=== PATIENT | female | born 1970 | race Hispanic/Latino ===

== ENCOUNTER 2020-08-13 03:13 | Inpatient (IN) | payer SELFPAY ==
[2020-08-13 04:16] LABS: Absolute Lymphocytes (CBC) 2.2 K/uL (0.7-4.9); Basophils % 1.3 % (0-1.3); Hematocrit 32.3 % (36.0-45.0); Lymphocytes % 14.5 % (15.3-44.8); MPV 8.4 fL (7.6-11.3); RBC Red Blood Cell Count 3.74 M/uL (3.86-4.86)
[2020-08-13 04:19] LABS: Protime INR 1.01
[2020-08-13 04:41] LABS: ALT/SGPT 44 U/L (12-78); AST/SGOT 36 U/L (15-37); Albumin 2.3 g/dL (3.4-5.0); Alkaline Phosphatase 149 U/L (45-117); Amylase 30 U/L (25-115); BUN Blood Urea Nitrogen 14 mg/dL (7-18); Bicarbonate 29 mmol/L (21-32); Bilirubin Direct < 0.1 mg/dL (0-0.2); Bilirubin Total 0.3 mg/dL (0.2-1.0); CKMB Creatine Kinase MB < 1.0 ng/mL (0.3-3.6); Creatine Phosphokinase 238 U/L (26-192); Glucose Level 383 mg/dL (74-106); Lipase 82 U/L (73-393); NT PRO-BNP 1256 pg/mL (<125); Potassium 3.4 mmol/L (3.5-5.1); Protein, Total 6.8 g/dL (6.4-8.2); Sodium Level 135 mmol/L (136-145); Troponin (Emerg Dept Use Only) 0.08 ng/mL (0.0-0.045)
[2020-08-13 04:43] LABS: Magnesium 1.3 mg/dL (1.8-2.4)
[2020-08-13] MEDS ORDERED: NA CHLORIDE 0.9% 250 ML ONE (04:59)
[2020-08-13] MEDS ORDERED: NA CHLORIDE 0.9% 0 ML ONE ×2 (04:59→06:42)
[2020-08-13] MEDS ORDERED: CEFTRIAXONE/SWI 1gm 1 GM/10 ML SYR ONE (04:59)
[2020-08-13 05:18] LABS: Anisocytosis SLIGHT; Blood Morphology Comment NOTED (NOT SEEN); Platelet Estimate ADEQ; White Blood Cell Scan OK (OK)
[2020-08-13] MEDS ORDERED: Magnesium Sulfate 2gm IVPB 2 G/50 ML BAG IV ONE (05:32)
[2020-08-13] MEDS ORDERED: INSULIN -REGULAR HUMAN 50 UNIT/0.5 ML ML ONE ×3 (05:32→11:47)
[2020-08-13] MEDS ORDERED: FAMOTIDINE 20 MG/2 ML VIAL IV ONE ×3 (05:32→09:30)
[2020-08-13] MEDS ORDERED: AZITHROMYCIN 500 MG INJ IVPB ONE (05:59)
--- NOTE | 2020-08-13 06:10 | EDPHYS ---
Physician Documentation [facility] Name: Jennifer Medeiros Age: 49 yrs Sex: Female : 1970 Arrival Date: 08/13/2020 Time: 03:18 Bed 20 Private MD: ED Physician Ravinder Palmer HPI: 08/13 03:57 This 49 yrs old Female presents to ER via EMS with complaints of Breathing angela Difficulty. 03:57 The patient has shortness of breath at rest, with light activity. Onset: The angela symptoms/episode began/occurred this morning, today. Duration: The symptoms are continuous, but are steadily getting better. The patient's shortness of breath is aggravated by supine position, talking, walking, is alleviated by sitting up, application of supplemental oxygen. Associated signs and symptoms: The patient has no apparent associated signs or symptoms. Severity of symptoms: At their worst the symptoms were moderate in the emergency department the symptoms are unchanged. The patient has not experienced similar symptoms in the past. - Family history:: not pertinent. ROS: 03:57 Constitutional: Negative for fever, chills, and weight loss, Eyes: Negative for injury, angela pain, redness, and discharge, ENT: Negative for injury, pain, and discharge, Neck: Negative for injury, pain, and swelling, Cardiovascular: Negative for chest pain, palpitations, and edema, Abdomen/GI: Negative for abdominal pain, nausea, vomiting, diarrhea, and constipation, Back: Negative for injury and pain, : Negative for injury, bleeding, discharge, and swelling, MS/Extremity: Negative for injury and deformity, Skin: Negative for injury, rash, and discoloration, Neuro: Negative for headache, weakness, numbness, tingling, and seizure, Psych: Negative for depression, anxiety, suicide ideation, homicidal ideation, and hallucinations, Allergy/Immunology: Negative for hives, rash, and allergies, Endocrine: Negative for neck swelling, polydipsia, polyuria, polyphagia, and marked weight changes, Hematologic/Lymphatic: Negative for swollen nodes, abnormal bleeding, and unusual bruising. 03:57 Respiratory: Positive for cough, shortness of breath, on exertion. Exam: 03:57 Constitutional: This is a well developed, well nourished patient who is awake, alert, angela and in no acute distress. Head/Face: Normocephalic, atraumatic. Eyes: Pupils equal round and reactive to light, extra-ocular motions intact. Lids and lashes normal. Conjunctiva and sclera are non-icteric and not injected. Cornea within normal limits. Periorbital areas with no swelling, redness, or edema. ENT: Nares patent. No nasal discharge, no septal abnormalities noted. Tympanic membranes are normal and external auditory canals are clear. Oropharynx with no redness, swelling, or masses, exudates, or evidence of obstruction, uvula midline. Mucous membranes moist. Neck: Trachea midline, no thyromegaly or masses palpated, and no cervical lymphadenopathy. Supple, full range of motion without nuchal rigidity, or vertebral point tenderness. No Meningismus. Chest/axilla: Normal chest wall appearance and motion. Nontender with no deformity. No lesions are appreciated. Cardiovascular: Regular rate and rhythm with a normal S1 and S2. No gallops, murmurs, or rubs. Normal PMI, no JVD. No pulse deficits. Abdomen/GI: Soft, non-tender, with normal bowel sounds. No distension or tympany. No guarding or rebound. No evidence of tenderness throughout. Back: No spinal tenderness. No costovertebral tenderness. Full range of motion. Skin: Warm, dry with normal turgor. Normal color with no rashes, no lesions, and no evidence of cellulitis. MS/ Extremity: Pulses equal, no cyanosis. Neurovascular intact. Full, normal range of motion. Neuro: Awake and alert, GCS 15, oriented to person, place, time, and situation. Cranial nerves II-XII grossly intact. Motor strength 5/5 in all extremities. Sensory grossly intact. Cerebellar exam normal. Normal gait. Psych: Awake, alert, with orientation to person, place and time. Behavior, mood, and affect are within normal limits. 03:57 Respiratory: mild respiratory distress is noted, Respirations: labored breathing, that is mild, that is moderate, Breath sounds: are clear throughout, rales, that are moderate, decreased breath sounds, rhonchi, that are mild, are scattered. 04:16 ECG was reviewed by the Attending Physician. [facility] Vital Signs: 03:00 BP 158 / 68; Pulse 124; Resp 27; Temp 97.5; Pulse Ox 100% on Non-rebreather mask; Pain fu 0/10; 04:00 BP 115 / 67; Pulse 117; Resp 23; Pulse Ox 100% on 80% BiPAP; Weight 82.1 kg (R); Pain fu 0/10; 05:25 BP 160 / 94; Pulse 113; Resp 19; Pulse Ox 100% on 80% BiPAP; Pain 0/10; fu 06:04 BP 156 / 97; Pulse 111; Resp 16; Pulse Ox 100% on 60% BiPAP; Pain 0/10; fu MDM: 03:42 Patient medically screened. angela 04:00 Differential diagnosis: asthma, Bronchitis CHF exacerbation, Chronic Obstructive angela Pulmonary Disease pneumonia, Pneumothorax pulmonary edema, Pulmonary Embolism reactive airway disease, Unstable Angina. Antibiotic administration: Not indicated. The patient's Wells Deep Vein Thrombosis Score was calculated as follows: Heart Rate >100 BPM (1.5 Pts) Malignancy Total Score: 3-6 Pts - Mod Risk. The patient's pulmonary embolism risk score was calculated as follows: the patients heart rate is greater than 100 beats per minute (1.5 Pts) malignancy Total Score: 3-6 points. This patient was found to be at moderate risk for a pulmonary embolism by using the Well's assessment criteria. Immunization status: Influenza vaccine: Data reviewed: vital signs, nurses notes, EMS record, lab test result(s), EKG, radiologic studies, CT scan, plain films. Data interpreted: ekg monitor: rate is 124 beats/min, rhythm is regular, Pulse oximetry: on room air is 77 %. Test interpretation: by ED physician or midlevel provider: ECG, plain radiologic studies. Counseling: I had a detailed discussion with the patient and/or guardian regarding: the historical points, exam findings, and any diagnostic results supporting the discharge/admit diagnosis, lab results, radiology results, the need for further work-up and treatment in the hospital. 08/13 03:29 Order name: Amylase, Serum sg 08/13 03:29 Order name: Basic Metabolic Panel sg 08/13 03:29 Order name: Blood Culture Adult (2) sg 08/13 03:29 Order name: CBC with Diff; Complete Time: 05:23 sg 08/13 03:29 Order name: Ckmb; Complete Time: 04:51 sg 08/13 03:29 Order name: CPK; Complete Time: 04:51 sg 08/13 03:29 Order name: Lactate; Complete Time: 04:51 08/13 03:29 Order name: LFT's; Complete Time: 04:51 08/13 03:29 Order name: Lipase; Complete Time: 04:51 08/13 03:29 Order name: Procalcitonin; Complete Time: 06:01 08/13 03:29 Order name: Protime (+inr); Complete Time: 04:28 08/13 03:29 Order name: Ptt, Activated; Complete Time: 04:28 08/13 03:29 Order name: Troponin (emerg Dept Use Only); Complete Time: 04:51 08/13 03:29 Order name: Urine Microscopic Only 08/13 03:30 Order name: Amylase; Complete Time: 04:51 [facility] 08/13 03:30 Order name: Basic Metabolic Panel; Complete Time: 04:51 [facility] 08/13 04:04 Order name: NT PRO-BNP; Complete Time: 04:51 [facility] 08/13 04:04 Order name: Magnesium; Complete Time: 04:51 [facility] 08/13 04:20 Order name: CBC Smear Scan; Complete Time: 05:23 [facility] 08/13 04:59 Order name: Glucose, Ancillary Testing; Complete Time: 05:03 [facility] 08/13 05:50 Order name: Urine Dipstick--Ancillary (enter results) [facility] 08/13 06:04 Order name: SARS-COV-2 RT PCR [facility] 08/13 06:12 Order name: Urine Culture [facility] 08/13 07:51 Order name: Lactate Sepsis 2 HR Follow-up [facility] 08/13 08:07 Order name: Blood Culture [facility] 08/13 08:38 Order name: Glucose, Ancillary Testing [facility] 08/13 09:37 Order name: C-Reactive Protein [facility] 08/13 03:29 Order name: Chest Single View XRAY 08/13 03:29 Order name: Accucheck; Complete Time: 05:12 08/13 03:29 Order name: Cardiac monitoring; Complete Time: 04:39 08/13 03:29 Order name: EKG - Nurse/Tech; Complete Time: 04:39 08/13 03:29 Order name: IV Saline Lock - Large Bore; Complete Time: 04:39 08/13 03:29 Order name: Labs collected and sent; Complete Time: 04:40 08/13 03:29 Order name: O2 Per Protocol; Complete Time: 04:40 08/13 03:29 Order name: O2 Sat Monitoring; Complete Time: 04:40 08/13 03:29 Order name: Urine Dipstick-Ancillary (obtain specimen); Complete Time: 05:49 08/13 03:43 Order name: EKG; Complete Time: 03:43 [facility] 08/13 03:43 Order name: IV Saline Lock; Complete Time: 03:54 [facility] 08/13 04:02 Order name: CT Chest For PE Angio [facility] 08/13 04:14 Order name: BIPAP [facility] 08/13 09:37 Order name: Ferritin [facility] 08/13 09:52 Order name: Hemoglobin A1c [facility] 08/13 11:37 Order name: Glucose, Ancillary Testing [facility] 08/13 13:46 Order name: Creatine Phosphokinase [facility] 08/13 13:46 Order name: CKMB Creatine Kinase MB [facility] 08/13 13:47 Order name: Troponin I ED[facility] EC:16 Rate is 116 beats/min. Rhythm is regular. QRS Cashiers is Normal. SC interval is normal. [facility] QRS interval is prolonged at 142 msec. QT interval is normal. No Q waves. T waves are Normal. No ST changes noted. Clinical impression: NSR w/ Non-specific ST/T Changes and No evidence of ischemia. Interpreted by me. Reviewed by me. Administered Medications: 04:58 Drug: Zithromax 500 mg Route: IVPB; Infused Over: 1 hrs; Site: left wrist; fu 05:58 Follow up: Response: No adverse reaction fu 05:00 Drug: Rocephin 1 grams Route: IV; Rate: per protocol; Site: left wrist; fu 05:11 Drug: NS 0.9% (30 ml/kg) 30 ml/kg Route: IV; Rate: bolus; Site: left wrist; fu 06:34 Follow up: IV Intake: 1000ml fu 05:28 Drug: Pepcid 20 mg Route: IVP; Site: left wrist; fu 06:00 Follow up: Response: No adverse reaction fu 05:29 Drug: Magnesium Sulfate 2 grams Route: IVPB; Infused Over: 2 hrs; Site: left wrist; fu 05:31 Drug: Insulin Regular Human 8 units {Co-Signature: [email or web address] (Nathanael Newell RN).} Route: IVP; fu Site: left wrist; 06:05 Follow up: Response: No adverse reaction fu 06:20 Drug: Aspirin Chewable Tablet 162 mg Route: PO; fu 06:40 Follow up: Response: No adverse reaction fu 06:21 Drug: Lovenox 1 mg/kg Route: Sub-Q; Site: right lower abdomen; fu 06:40 Follow up: Response: No adverse reaction fu 06:23 Drug: SOLU-Medrol 125 mg Route: IVP; Site: left wrist; fu 06:40 Follow up: Response: No adverse reaction fu 06:35 Drug: Potassium Effervescent Tablet 50 mEq Route: PO; fu 06:40 Follow up: Response: No adverse reaction fu Disposition: 08/13/20 06:09 Hospitalization ordered by Jim Meng for Inpatient Admission. Preliminary diagnosis are Dyspnea, Hypoxemia, Cardiomegaly, Hypokalemia, Hypomagnesemia, SARS-associated coronavirus as the cause of diseases classified elsewhere - covid 19 positive, Anemia, unspecified. - Bed requested for Telemetry/MedSurg (Inpatient). - Status is Inpatient Admission. ss - Condition is Fair. - Problem is new. - Symptoms have improved. Signatures: Dispatcher [employer] EDMS [place] Sunshine Steven, RN Ravinder Wilson MD MD cha Smirch, Shelby, RN RN ss Lukas Ryan, FISCAL SERVICES DIRECTOR-C FISCAL SERVICES DIRECTOR-Cla1 Kevon Oconnell RN RN Yonatan Hutchison RN RN ja1 Nathanael Newell RN [email or web address] Corrections: (The following items were deleted from the chart) 04:04 03:43 MAGNESIUM+C.LAB.BRZ ordered. EDMS EDMS 04:04 03:43 PROBNP+C.LAB.BRZ ordered. EDMS EDMS 05:12 03:43 CORONAVIRUS+MR.LAB.BRZ ordered. EDMS EDMS 07:50 06:09 Hospitalization Ordered by Jim Meng DO for Inpatient Admission. Preliminary bd diagnosis is Dyspnea; Hypoxemia; Cardiomegaly; Hypokalemia; Hypomagnesemia; SARS-associated coronavirus as the cause of diseases classified elsewhere - covid 19 positive; Anemia, unspecified. Bed requested for Telemetry/MedSurg (Inpatient). Status is Inpatient Admission. Condition is Fair. Problem is new. Symptoms have improved. angela 15:46 07:50 08/13/2020 06:09 Hospitalization Ordered by Jim Meng DO for Inpatient ja1 Admission. Preliminary diagnosis is Dyspnea; Hypoxemia; Cardiomegaly; Hypokalemia; Hypomagnesemia; SARS-associated coronavirus as the cause of diseases classified elsewhere - covid 19 positive; Anemia, unspecified. Bed requested for [facility] ER HOLD. Status is Inpatient Admission. Condition is Fair. Problem is new. Symptoms have improved. bd 16:30 15:46 08/13/2020 06:09 Hospitalization Ordered by Jim Meng DO for Inpatient ss Admission. Preliminary diagnosis is Dyspnea; Hypoxemia; Cardiomegaly; Hypokalemia; Hypomagnesemia; SARS-associated coronavirus as the cause of diseases classified elsewhere - covid 19 positive; Anemia, unspecified. Bed requested for Telemetry/MedSurg (Inpatient). Status is Inpatient Admission. Condition is Fair. Problem is new. Symptoms have improved. ja1
--- NOTE | 2020-08-13 06:10 | ER ---
Nurse's Notes [facility] Name: Jennifer Medeiros Age: 49 yrs Sex: Female : 1970 Arrival Date: 08/13/2020 Time: 03:18 Bed 20 Private MD: Diagnosis: Dyspnea;Hypoxemia;Cardiomegaly;Hypokalemia;Hypomagnesemia;SARS-associated coronavirus as the cause of diseases classified elsewhere-covid 19 positive;Anemia, unspecified Presentation: 08/13 03:24 Chief complaint: EMS states: called for difficulty of breathing, diaphoretic, restless, fu tried CPAP but patient can not tolerate, O2 sat at 70's. Patient on chemotherapy at [facility] for right breast cancer, last chemo was Jul 15, 2020. Coronavirus screen: Client denies travel out of the [place] in the last 14 days. patient received first dose of COVID vaccine. Ebola Screen: No symptoms or risks identified at this time. Initial Sepsis Screen: Does the patient meet any 2 criteria? RR > 20 per min. Does the patient have a suspected source of infection? No. Patient's initial sepsis screen is negative. Risk Assessment: Do you want to hurt yourself or someone else? Patient reports no desire to harm self or others. Onset of symptoms was August 13, 2020 at 02:00. 03:24 Method Of Arrival: EMS: [facility] fu 03:24 Acuity: ALE 2 sg 03:30 Note EMS state pt room air saturation to be 77% upon arrival. sg - Family history:: not pertinent. Screenin:06 Abuse screen: Denies threats or abuse. Nutritional screening: No deficits noted. fu Tuberculosis screening: No symptoms or risk factors identified. Fall Risk None identified. Assessment: 03:20 General: Appears distressed, Behavior is cooperative, anxious. Pain: Denies pain. fu Neuro: Level of Consciousness is awake, alert, obeys commands, Oriented to person, place, time, situation, Hunter Guide are equal bilaterally Moves all extremities. Cardiovascular: Reports diaphoresis, palpitations, shortness of breath, Rhythm is sinus tachycardia. Respiratory: Respiratory effort is labored, using tripod position, Respiratory pattern is tachypnea Patient placed on BiPAP: Inspiratory Pressure: 14 Expiratory (EPAP) Pressure: 12 FiO2%: 80 Respiratory Rate: 12 GI: Patient currently denies abdominal pain, nausea, vomiting. : No signs and/or symptoms were reported regarding the genitourinary system. Derm: Denies pain. 04:00 Reassessment: Patient and/or family updated on plan of care and expected duration. Pain fu level reassessed. Patient denies pain at this time. Patient states feeling better. 05:59 Reassessment: Patient appears in no apparent distress at this time. Patient and/or fu family updated on plan of care and expected duration. Pain level reassessed. 05:59 Reassessment: No changes from previously documented assessment. fu 06:02 Reassessment: patient with port-a-cath on the right upper chest. fu Vital Signs: 03:00 BP 158 / 68; Pulse 124; Resp 27; Temp 97.5; Pulse Ox 100% on Non-rebreather mask; Pain fu 0/10; 04:00 BP 115 / 67; Pulse 117; Resp 23; Pulse Ox 100% on 80% BiPAP; Weight 82.1 kg (R); Pain fu 0/10; 05:25 BP 160 / 94; Pulse 113; Resp 19; Pulse Ox 100% on 80% BiPAP; Pain 0/10; fu 06:04 BP 156 / 97; Pulse 111; Resp 16; Pulse Ox 100% on 60% BiPAP; Pain 0/10; fu ED Course: 03:18 Patient arrived in ED. mw2 03:20 Maintain EMS IV. IV is patent, Flushed left forearm. fu 03:21 Kevon Oconnell, GAIL is Primary Nurse. fu 03:42 Ravinder Palmer MD is Attending Physician. angela 03:50 Chest Single View XRAY In Process Unspecified. EDMS 04:30 First set of blood cultures drawn. fu 04:40 Amylase, Serum Sent. fu 04:40 Basic Metabolic Panel Sent. fu 04:41 Notified ED physician of a critical lab result(s). Lac 2.7, Magnesium 1.3. sg 04:43 Triage completed. sg 05:00 COVID swab sent to lab. sg 05:00 Second set of blood cultures drawn by me. fu 05:06 No provider procedures requiring assistance completed. fu 05:09 pvc monitor on. Pulse ox on. NIBP on. fu 05:24 CT Chest For PE Angio In Process Unspecified. EDMS 05:49 Urine Microscopic Only Sent. fu 05:49 Blood Culture Adult (2) Sent. fu 06:06 Jim Meng DO is Hospitalizing Provider. angela 07:14 Primary Nurse role handed off by Kevon Oconnell, GAIL tw2 07:14 Eusebia Pederson, GAIL is Primary Nurse. tw2 16:30 Patient admitted, IV remains in place. tw2 Administered Medications: 04:58 Drug: Zithromax 500 mg Route: IVPB; Infused Over: 1 hrs; Site: left wrist; fu 05:58 Follow up: Response: No adverse reaction fu 05:00 Drug: Rocephin 1 grams Route: IV; Rate: per protocol; Site: left wrist; fu 05:11 Drug: NS 0.9% (30 ml/kg) 30 ml/kg Route: IV; Rate: bolus; Site: left wrist; fu 06:34 Follow up: IV Intake: 1000ml fu 05:28 Drug: Pepcid 20 mg Route: IVP; Site: left wrist; fu 06:00 Follow up: Response: No adverse reaction fu 05:29 Drug: Magnesium Sulfate 2 grams Route: IVPB; Infused Over: 2 hrs; Site: left wrist; fu 05:31 Drug: Insulin Regular Human 8 units {Co-Signature: [email or web address] (Nathanael Newell RN).} Route: IVP; fu Site: left wrist; 06:05 Follow up: Response: No adverse reaction fu 06:20 Drug: Aspirin Chewable Tablet 162 mg Route: PO; fu 06:40 Follow up: Response: No adverse reaction fu 06:21 Drug: Lovenox 1 mg/kg Route: Sub-Q; Site: right lower abdomen; fu 06:40 Follow up: Response: No adverse reaction fu 06:23 Drug: SOLU-Medrol 125 mg Route: IVP; Site: left wrist; fu 06:40 Follow up: Response: No adverse reaction fu 06:35 Drug: Potassium Effervescent Tablet 50 mEq Route: PO; fu 06:40 Follow up: Response: No adverse reaction fu Intake: 06:34 IV: 1000ml; Total: 1000ml. fu Outcome: 06:09 Decision to Hospitalize by Provider. angela 16:30 Patient left the ED. ss 16:30 Admitted to Med/surg tw2 16:30 Condition: stable 16:30 Instructed on the need for admit. Signatures: Dispatcher [employer] EDBasil Almaraz, RN Ravinder Wilson MD MD cha Smirch, Shelby, RN Eusebia Ware RN RN tw2 Kevon Oconnell RN GAIL Napoleon Burger [facility] Nathanael Newell RN [email or web address] Corrections: (The following items were deleted from the chart) 05:50 03:10 Maintain EMS IV. IV is patent, Flushed left forearm eduardo clrak
[2020-08-13 06:11] LABS: Urine Bacteria 20-50 /HPF (<20); Urine RBC <5 /HPF (NONE SEEN); Urine Urothelial Cells <5 /HPF (NONE SEEN)
[2020-08-13 06:11] LABS: Urine Blood TRACE (NEG); Urine Glucose 2+ (NEG); Urine Protein 3+ (NEG); Urine pH 6.5 (5.0-7.0)
[2020-08-13] MEDS ORDERED: POTASSIUM 25 MEQ EFFERV TAB ONE (06:26)
[2020-08-13] MEDS ORDERED: ASPIRIN 81 MG CHEWABLE TABLET ONE (06:26)
[2020-08-13] MEDS ORDERED: METHYLPREDNISOLONE 125 MG INJ ONE (06:26)
[2020-08-13] MEDS ORDERED: ENOXAPARIN 80 MG/0.8 ML SQ ONE (06:27)
[2020-08-13] MEDS ORDERED: NA CHLORIDE 0.9% 1,000 ML ONE (06:42)
[2020-08-13] MEDS ORDERED: ACETAMINOPHEN 500 MG TAB PO PRN (08:02)
[2020-08-13] MEDS ORDERED: GLUCAGON 1 MG/VIAL IM PRN (08:02)
[2020-08-13] MEDS ORDERED: ONDANSETRON 4 MG/2 ML VIAL IV PRN (08:02)
[2020-08-13] MEDS ORDERED: D50W 25 GM/50 ML SYRINGE IV PRN (08:02)
[2020-08-13] MEDS: METFORMIN ER 500 MG TAB PO SCH ×3 (08:02→17:00)
[2020-08-13] MEDS ORDERED: ASPIRIN EC 81 MG TAB PO ONE (08:51)
[2020-08-13] MEDS ORDERED: INSULIN GLARGINE 100 UNITS/ML SQ ONE (08:51)
[2020-08-13] MEDS ORDERED: METFORMIN HCL 500 MG TAB ONE (08:51)
[2020-08-13] MEDS ORDERED: VITAMIN D 1000 UNIT TAB ONE (08:51)
[2020-08-13] MEDS ORDERED: lisinopriL 20 MG TAB ONE (08:52)
[2020-08-13] MEDS ORDERED: ENOXAPARIN 40 MG/0.4 ML SQ ONE (08:52)
[2020-08-13] MEDS ORDERED: ZINC SULFATE 220 MG CAP ONE (08:52)
[2020-08-13] MEDS ORDERED: ASCORBIC ACID 500 MG TABLET ONE ×2 (08:52→15:13)
--- NOTE | 2020-08-13 08:57 | RAD REPORT ---
EXAM DESCRIPTION: RAD - Chest Single View - 08/13/2020 3:50 am CLINICAL HISTORY: COPD, shortness of breath COMPARISON: None TECHNIQUE: AP portable chest image was obtained 08/13/2020 3:50 am . FINDINGS: Lung volumes are low. Right-sided Port-A-Cath is in place. Costophrenic angle blunting is present. There is airspace opacification in both lower lung mendes. Heart and vasculature are normal. No pneumothorax. No acute bony abnormality seen. No acute aortic f indings suspected. IMPRESSION: Bilateral airspace opacification at each base with small pleural effusion. Findings are nonspecific. This could be cardiogenic or noncardiogenic pulmonary edema. Bilateral pneu monia is present more typical for viral in etiology. COVID-19 pneumonia cannot be excluded.
[2020-08-13] MEDS: lisinopriL 20 MG TAB PO SCH (09:00)
[2020-08-13] MEDS ORDERED: IVERMECTIN 3 MG TABLET PO SCH (09:00)
[2020-08-13] MEDS: ZINC SULFATE 220 MG CAP PO SCH (09:00)
[2020-08-13] MEDS: FAMOTIDINE 20 MG TAB PO SCH ×2 (09:00→21:05)
[2020-08-13] MEDS: ASCORBIC ACID 500 MG TABLET PO SCH ×4 (09:00→21:05)
[2020-08-13] MEDS: ASPIRIN EC 81 MG TAB PO SCH (09:00)
[2020-08-13] MEDS: VITAMIN D 1000 UNIT TAB PO SCH (09:00)
[2020-08-13] MEDS: THIAMINE HCL 100 MG TABLET PO SCH ×2 (09:00→21:05)
[2020-08-13] MEDS ORDERED: INSULIN GLARGINE 100 UNITS/ML SQ SCH (09:00)
[2020-08-13] MEDS: ENOXAPARIN 40 MG/0.4 ML SQ SCH (09:00)
[2020-08-13] MEDS: INSULIN -REGULAR HUMAN 50 UNIT/0.5 ML ML SQ SCH ×4 (09:04→21:06)
[2020-08-13] MEDS ORDERED: THIAMINE HCL 100 MG TABLET ONE (09:29)
[2020-08-13 09:37] LABS: C-Reactive Protein 16.1 mg/L (<3.00); Ferritin 68.6 ng/mL (8-388)
[2020-08-13] MEDS ORDERED: INFLUENZA VACCINE (for 3y+) 0.5 ML DOSE IMVAC ONE ×2 (10:00→12:10)
--- NOTE | 2020-08-13 13:32 | P.CNS ---
Date of Consult: 08/13/20 Reason for Consult: Respiratory failure Chief Complaint: Respiratory failure from hall virus History of Present Illness: Patient is 49 years of age admitted with respiratory failure from hall virus she has been sick for about a week came in with progressive shortness of breath currently doing well patient is on BiPAP Allergies No Known Allergies Allergy (Unverified 08/13/20 08:01) Home Medications: Furosemide [Lasix] 40 mg PO BID 08/13/20 Lisinopril/Hydrochlorothiazide [Lisinopril-Hctz 20-25 mg Tab] 20 mg PO DAILY 08/13/20 Metformin ER [Glucophage ER] 1,000 mg PO BID* 08/13/20 dexAMETHasone [Dexamethasone] 8 mg PO BID 08/13/20 glipiZIDE [Glipizide] 5 mg PO DAILY 08/13/20 lisinopriL [Lisinopril] 5 mg PO DAILY 08/13/20 - Past Medical/Surgical History -: DM -: HTN -: Breast cancer treated with chemotherapy at [facility] July 15 Review of Systems General: Weakness Respiratory: Shortness of Breath Physical Examination Temp Pulse Resp BP Pulse Ox 125 H 19 143/77 H 100 08/13/20 09:00 08/13/20 08:02 08/13/20 09:00 08/13/20 08:02 General: Alert, Oriented x3, Mild distress Respiratory: Clear to auscultation bilaterally, Diminished, Friction rub Cardiovascular: Normal S1 S2 Laboratory Data (last 24 hrs) 08/13/20 03:46: PT 11.9, INR 1.01, APTT 24.6 08/13/20 03:46: WBC 15.0 H, Hgb 9.9 L, Hct 32.3 L, Plt Count 439 H 08/13/20 03:46: Sodium 135 L, Potassium 3.4 L, BUN 14, Creatinine 0.87, Glucose 383 H, Magnesium 1.3 L*, Total Bilirubin 0.3, AST 36, ALT 44, Alkaline Phosphatase 149 H, Amylase 30, Lipase 82 08/13/20 03:43: Magnesium Cancelled - Problems (1) COVID-19 Current Visit: Yes Status: Acute Plan: Patient is 49 years of age admitted with pneumonia from hall virus patient's white count is elevated ferritin levels are normal agree with the hall virus protocol continue with ivermectin and steroids patient is on Decadron 5 mg p.o. b.i.d. increased to Solu-Medrol [address] scan reviewed no evidence of pulmonary embolism she has bilateral pulmonary infiltrates saturation satisfactory currently on 3 L of nasal cannula oxygen
[2020-08-13 13:46] LABS: CKMB Creatine Kinase MB 1.6 ng/mL (0.3-3.6); Troponin I 0.2 ng/mL (0.0-0.045)
--- NOTE | 2020-08-13 14:14 | ECHO ---
HEIGHT: 5 ft 5 in WEIGHT: 180 lb 15.992 oz DATE OF STUDY: 08/13/[address]: Jim Meng DO 2-DIMENSIONAL: YES M.MODE: YES DOPPLER: YES COLOR FLOW: YES TDS: NO PORTABLE: NO DEFINITY: NO BUBBLE STUDY: NO DIAGNOSIS: LEFT BUNDLE BRANCH BLOCK/ TOXICTY-MYOPATHY CARDIAC HISTORY: CATHERIZATION: SURGERY: PROSTHETIC VALVE: PACEMAKER: MEASUREMENTS (cm) DIASTOLIC (NORMALS) SYSTOLIC (NORMALS) IVSd 1.2 (0.6-1.2) LA Diam 4.2 (1.9-4.0) LVEF 32% LVIDd 4.3 (3.5-5.7) LVIDs 3.7 (2.0-3.5) %FS 15% LVPWd 1.2 (0.6-1.2) Ao Diam 2.4 (2.0-3.7) 2 DIMENSIONAL ASSESSMENT: RIGHT ATRIUM: NORMAL LEFT ATRIUM: ENLARGED RIGHT VENTRICLE: NROAML LEFT VENTRICLE: DEPRESSED FUNCTION TRICUSPID VALVE: NORMAL MITRAL VALVE: MILD TO MODERATE MITRAL REGURGITATION PULMONIC VALVE: NORMAL AORTIC VALVE: NORMAL PERICARDIAL EFFUSION: SMALL AORTIC ROOT: NORMAL LEFT VENTRICULAR WALL MOTION: MODERATELY SEVERE GLOBAL HYPOKINESIS. DOPPLER/COLOR FLOW: SEE BELOW. COMMENTS: MODERATELY DEPRESSED LEFT VENTRICULAR EJECTION FRACTION 30-35%. MODERATE GLOBAL HYPOKINESIS. MILD TO MODERATE MITRAL REGURGITATION. SMALL PERICARDIAL EFFUSION. TECHNOLOGIST: GRANT LIND
--- NOTE | 2020-08-13 15:55 | CON ---
Date of Consultation: 08/13/2020 Reason For Consultation: Heart failure. History Of Present Illness: This is a 49-year-old female with history of breast cancer, on chemother apy that was stopped due to a drop in ejection fraction, presented with shortness of breath and respi ratory failure due to COVID-19 infection. Was placed on high-flow oxygen in the emergency room. She has history of diabetes, hypertension, and nonischemic cardiomyopathy. Past Medical History: As outlined above in HPI. Medications: Refer to reconciliation sheet for detailed list. Allergies: NO KNOWN DRUG ALLERGIES. Family History: No premature coronary artery disease or cancer. Social History: She does not smoke or drink. Does not use any drugs. Review of Systems: All systems reviewed and they were negative except for what mentioned in the HPI. Physical Examination: Vital Signs: Temperature is 98.4, pulse is 101, breathing 19, blood pressure is 160/89, saturating 9 9% with oxygen supplements. General: This is a middle-aged female, in no distress. Head and Neck: Pupils are equal, reactive to light. Intact eye movements. No JVD. No cyanosis. Neck: Supple. Thyroid is not enlarged. Lungs: Rhonchi bilaterally. No accessory muscle use. Normal structure. Heart: Regular rate and rhythm. Tachycardic. Abdomen: Soft, nontender. Bowel sounds positive. No organomegaly. No masses or hernia. No rigidi ty or rebound. Extremities: 1+ pitting edema. No clubbing, cyanosis. Intact pulses. Skin: No rashes. Neurologic: Alert, awake, oriented x3. No acute focal deficits appreciated. Investigations: Troponin is 0.2. Magnesium is 1.3, potassium is 3.4, creatinine 0.87. On echo, she has an ejection fraction of 30% to 35% with small pericardial effusion. Assessment And Recommendations: 1.Acute on chronic systolic heart failure exacerbation respiratory infection due to COVID -19. Recommend gentle hydration initially as tolerated and monitor BUN and creatinine and electrolyt es carefully. 2.Due to a low ejection fraction, which could be chemotherapy-induced, the patient has a slight trop onin leak. Recommend a Lexiscan nuclear stress test to further evaluate the coronary arteries and fu rther plan accordingly. In the meanwhile, start on baby aspirin 81 mg. Thank you for the consult. SR/MODL Voice ID: [id number] Report ID: [id number]
--- NOTE | 2020-08-13 16:41 | P.HP ---
Certification for Inpatient Patient admitted to: Inpatient With expected LOS: >2 Midnights Patient will require the following post-hospital care: None Practitioner: I am a practitioner with admitting privileges, knowledge of patient current condition, hospital course, and medical plan of care. Services: Services provided to patient in accordance with Admission requirements found in Title 42 Section 412.3 of the Code of Federal Regulations Patient History Date of Service: 08/13/20 Primary Care Provider: none Reason for admission: Respiratory failure from hall virus History of Present Illness: 49-year-old female with history of breast cancer previously on chemotherapy, diabetes and hypertension. Patient reported increasing symptoms of shortness of breath last night. Symptoms worsen. She denied any chest pain, nausea vomiting. Patient reports that she had stopped chemotherapy about a week ago related to cardiac toxicity. She also reports having a recent transfusion due to anemia. Because of her symptoms she came to the ER for further evaluation. In the ER she was evaluated. Patient was tachypneic and slightly tachycardic. Patient was found to be positive for COVID. Patient required BiPAP in the emergency room. White count 15. Hemoglobin 9.9. Sodium 135, potassium 3.4. Being of 14, creatinine 0.8 with a GFR 69. Glucose 383. Alk-phos 149, CK 238. Troponin 0.08 with a BNP of 1256. Pro calcitonin negative. Magnesium 1.3. Chest x-ray shows evidence of viral pneumonia. Patient admitted for further evaluation. Allergies No Known Allergies Allergy (Unverified 08/13/20 08:01) Home medications list reviewed: Yes Home Medications: Furosemide [Lasix] 40 mg PO BID 08/13/20 Lisinopril/Hydrochlorothiazide [Lisinopril-Hctz 20-25 mg Tab] 20 mg PO DAILY 08/13/20 Metformin ER [Glucophage ER] 1,000 mg PO BID* 08/13/20 dexAMETHasone [Dexamethasone] 8 mg PO BID 08/13/20 glipiZIDE [Glipizide] 5 mg PO DAILY 08/13/20 lisinopriL [Lisinopril] 5 mg PO DAILY 08/13/20 - Past Medical/Surgical History Has patient received pneumonia vaccine in the past: No -: Diabetes mellitus type 2 -: HTN -: Breast cancer treated with chemotherapy at [facility] [place] July 15 -: Anemia of chronic disease -: Cardiac toxicity related to chemotherapy -: Former smoker -: Psychosocial/ Personal History: Patient is - Family History Family History: Reviewed- Non-Contributory - Social History Smoking Status: Former smoker Alcohol use: Yes CD- Drugs: No Caffeine use: Yes Place of Residence: Home Review of Systems General: Weakness, Malaise, As per HPI Eyes: Unremarkable ENT: Nose Congestion, As per HPI Respiratory: Cough, Shortness of Breath, SOB with Excertion, As per HPI Cardiovascular: Unremarkable Gastrointestinal: Unremarkable Genitourinary: Unremarkable Musculoskeletal: Unremarkable Integumentary: Unremarkable Neurological: Unremarkable Lymphatics: Unremarkable Physical Examination - Vital Signs Temperature: 97.2 F Blood Pressure: 161/69 Pulse: 100 Respirations: 18 Pulse Ox (%): 94 - Physical Exam General: Alert, Cooperative, Mild distress, Other (Patient currently on BiPAP) HEENT: Atraumatic Neck: Supple Respiratory: Other (Currently on BiPAP) Cardiovascular: Abnormal pulses (Sinus tachycardia) Gastrointestinal: Normal bowel sounds, Non-distended, No tenderness, No masses, No rebound, No guarding Integumentary: No tenderness/swelling, No erythema, No warmth, No cyanosis Neurological: Normal speech, Normal strength at 5/5 x4 extr, Normal tone, Normal affect - Studies Laboratory Data (last 24 hrs) 08/13/20 03:46: PT 11.9, INR 1.01, APTT 24.6 08/13/20 03:46: WBC 15.0 H, Hgb 9.9 L, Hct 32.3 L, Plt Count 439 H 08/13/20 03:46: Sodium 135 L, Potassium 3.4 L, BUN 14, Creatinine 0.87, Glucose 383 H, Magnesium 1.3 L*, Total Bilirubin 0.3, AST 36, ALT 44, Alkaline Phosphatase 149 H, Amylase 30, Lipase 82 08/13/20 03:43: Magnesium Cancelled Assessment and Plan - Plan Impression: Dyspnea secondary to acute respiratory failure related to bilateral COVID pneumonia Elevated troponin likely ischemic demand related to above Diabetes mellitus type 2 with hyperglycemia Hypertension Anemia of chronic disease Breast cancer with recent chemotherapy History of Cardiac Toxicity related to chemotherapy Plan: Patient will be admitted for further evaluation and treatment. Patient cur rently on BiPAP. Will trial high-flow oxygen. Will continue with IV steroids. Will consider IV Remdesivir. Continue with supplementation. Will monitor the patient closely. Will obtain echocardiogram to evaluate further. Cardiology consulted to further address. Monitor cardiac enzymes. Will provide sliding scale. Accu-Cheks in place. Will need to restart home medication for hypertension. Monitor anemia. Patient recently on chemotherapy. This was discontinued due to toxicity. Pulmonology consulted to further address. Await recommendation. Recheck chest x-ray tomorrow. Continue to try to wean down her oxygen usage. Will monitor daily. Discharge Plan: Home Plan to discharge in: Greater than 2 days - Advance Directives Does patient have a Living Will: No Does patient have a Durable POA for Healthcare: No - Code Status/Comfort Care Code Status Assessed: Yes (Patient is full code) Time Spent Managing Pts Care (In Minutes): 55
[2020-08-13] MEDS: POTASSIUM CL SA 10 MEQ TAB PO ONE ×2 (16:48→17:33)
[2020-08-13] MEDS: METHYLPREDNISOLONE 125 MG INJ IV SCH (16:49)
[2020-08-13 17:25] LABS: Magnesium 2.2 mg/dL (1.8-2.4); Potassium 4.6 mmol/L (3.5-5.1)
[2020-08-13] MEDS: METOPROLOL TAR 25 MG TAB PO SCH (17:34)
[2020-08-13] MEDS ORDERED: D50W 25 GM/50 ML VIAL IV PRN (18:00)
[2020-08-13] MEDS ORDERED: MELATONIN 5 MG TABLET PO SCH (21:00)
[2020-08-13] MEDS ORDERED: ATORVASTATIN 10 MG TAB PO SCH (21:00)
[2020-08-13] MEDS: INSULIN GLARGINE 100 UNITS/ML SQ SCH (21:06)
[2020-08-13 21:48] LABS: CKMB Creatine Kinase MB < 1.0 ng/mL (0.3-3.6); Creatine Phosphokinase 174 U/L (26-192); Troponin I 0.14 ng/mL (0.0-0.045)
[2020-08-13] MEDS ORDERED: BENZONATATE 100 MG CAP PO PRN (23:16)
[2020-08-14] MEDS: METHYLPREDNISOLONE 125 MG INJ IV SCH ×2 (01:25→08:19)
[2020-08-14 04:40] LABS: Basophils % 0.3 % (0-1.3); Hematocrit 29.4 % (36.0-45.0); Lymphocytes % 8.4 % (15.3-44.8); MPV 8.4 fL (7.6-11.3); RBC Red Blood Cell Count 3.49 M/uL (3.86-4.86)
[2020-08-14 05:15] LABS: Albumin 2.3 g/dL (3.4-5.0); Bilirubin Total 0.2 mg/dL (0.2-1.0); C-Reactive Protein 12.8 mg/L (<3.00); Ferritin 70.5 ng/mL (8-388); Magnesium 2.5 mg/dL (1.8-2.4); Potassium 4.4 mmol/L (3.5-5.1); Protein, Total 6.9 g/dL (6.4-8.2); Thyroid Stimulating Hormone 0.375 uIU/mL (0.360-3.740)
[2020-08-14] MEDS: METOPROLOL TAR 25 MG TAB PO SCH (06:16)
[2020-08-14] MEDS: ENOXAPARIN 40 MG/0.4 ML SQ SCH (08:17)
[2020-08-14] MEDS: ASPIRIN EC 81 MG TAB PO SCH (08:17)
[2020-08-14] MEDS: INSULIN -REGULAR HUMAN 50 UNIT/0.5 ML ML SQ SCH ×2 (08:17→11:54)
[2020-08-14] MEDS: THIAMINE HCL 100 MG TABLET PO SCH (08:18)
[2020-08-14] MEDS: INSULIN GLARGINE 100 UNITS/ML SQ SCH (08:18)
[2020-08-14] MEDS: lisinopriL 20 MG TAB PO SCH (08:18)
[2020-08-14] MEDS: FAMOTIDINE 20 MG TAB PO SCH (08:19)
[2020-08-14] MEDS: ZINC SULFATE 220 MG CAP PO SCH (08:19)
[2020-08-14] MEDS: ASCORBIC ACID 500 MG TABLET PO SCH ×2 (08:19→14:20)
[2020-08-14] MEDS: VITAMIN D 1000 UNIT TAB PO SCH (08:25)
--- NOTE | 2020-08-14 08:50 | P.DS ---
Admission Date: 08/13/20 Discharge Date: 08/14/20 Primary Care Provider: none Disposition: ROUTINE DISCHARGE Discharge Condition: GOOD Reason for Admission: Respiratory failure from hall virus Consultations: Pulmonary-Dr. Hernández Cardiology-Dr. Prado Procedures: COVID: Positive CT Scan: COVID pneumonia. No pulmonary embolus. ECHO: EF 32% 2 DIMENSIONAL ASSESSMENT: RIGHT ATRIUM: NORMAL LEFT ATRIUM: ENLARGED RIGHT VENTRICLE: NROAML LEFT VENTRICLE: DEPRESSED FUNCTION TRICUSPID VALVE: NORMAL MITRAL VALVE: MILD TO MODERATE MITRAL REGURGITATION PULMONIC VALVE: NORMAL AORTIC VALVE: NORMAL PERICARDIAL EFFUSION: SMALL AORTIC ROOT: NORMAL LEFT VENTRICULAR WALL MOTION: MODERATELY SEVERE GLOBAL HYPOKINESIS. DOPPLER/COLOR FLOW: SEE BELOW. COMMENTS: MODERATELY DEPRESSED LEFT VENTRICULAR EJECTION FRACTION 30-35%. MODERATE GLOBAL HYPOKINESIS. MILD TO MODERATE MITRAL REGURGITATION. SMALL PERICARDIAL EFFUSION. Follow up CXR: Medical Problem List: Dyspnea secondary to acute respiratory failure related to bilateral COVID pneumonia Elevated troponin likely ischemic demand related to above further complicated with history of cardiac toxicity related to chemotherapy and echocardiogram showing small pericardial fusion, EF 30-35% with moderate global hypokinesis, mild to moderate mitral regurgitation Diabetes mellitus type 2 with hyperglycemia Hypertension Anemia of chronic disease Breast cancer with recent chemotherapy Chronic systolic CHF ejection fraction 30-35% Hyperlipidemia Brief History of Present Illness: 49-year-old female with history of breast cancer previously on chemotherapy, diabetes and hypertension. Patient reported increasing symptoms of shortness of breath last night. Symptoms worsen. She denied any chest pain, nausea vomiting. Patient reports that she had stopped chemotherapy about a week ago related to cardiac toxicity. She also reports having a recent transfusion due to anemia. Because of her symptoms she came to the ER for further evaluation. In the ER she was evaluated. Patient was tachypneic and slightly tachycardic. Patient was found to be positive for COVID. Patient required BiPAP in the emergency room. White count 15. Hemoglobin 9.9. Sodium 135, potassium 3.4. Being of 14, creatinine 0.8 with a GFR 69. Glucose 383. Alk-phos 149, CK 238. Troponin 0.08 with a BNP of 1256. Pro calcitonin negative. Magnesium 1.3. Chest x-ray shows evidence of viral pneumonia. Patient admitted for further evaluation. Hospital Course: Patient presented with dyspnea secondary to acute respiratory failure related to bilateral COVID pneumonia. Patient was admitted for further evaluation and treatment. Patient was seen by pulmonology. Patient received IV steroids, Remdesivir, and supplementation with improvement. Patient did well Overnite. Patient without significant shortness of breath. Patient currently on 2 L per nasal cannula. CT scan did not show any evidence of pulmonary embolism. Troponin was slightly elevated likely from ischemic demand. This was further complicated with history of cardiac [place] related to chemotherapy for [place] cancer. Echocardiogram performed showed small pericardial effusion with ejection fraction around 30-35% with moderate global hypokinesis and mild to moderate mitral regurgitation. Patient without significant chest pain or shortness of breath at discharge. At discharge patient will continue with oxygen at 2 L per nasal cannula. Home oxygen will be arranged to maintain sats above 93%. At discharge patient will continue with prednisone 20 mg 1 pill twice daily for 7 days then 1 pill once daily for 7 days. Patient will also be given Tessalon Perles 100 mg 3 times a day as needed for cough and Ventolin 2 puffs 3 times a day as needed for shortness of breath. The patient will continue with vitamin C 500 mg one pill 3 times a day, vitamin-D 2000 units one pill daily, zinc 220 mg one pill daily, thiamine 100 mg one pill daily, and melatonin 5 mg one pill every bedtime. The patient should continue with aspirin 81 mg daily. Patient will need to limit her activities at home especially with increased shortness of breath. Patient provided education on COVID isolation guidelines. Patient will need a follow up with pulmonology within 1 week to follow up this hospitalization and further address her care. Oxygen will be weaned off with the help of pulmonology. Further changes in medication will be provided by pulmonology as well. As mentioned above patient had elevated troponin likely ischemic demand. This is further complicated with her history of cardiac toxicity related to chemotherapy for her breast cancer. Echocardiogram shows small pericardial fusion, EF shows 30-35% with moderate global hypokinesis, mild and moderate mitral regurgitation. Patient with underlying chronic systolic heart failure. Recommend to continue 1500 cc per day fluid restriction. Recommend to monitor her weight daily. If her weight increases by more than 5 lb she is to contact her PCP or cardiology for further recommendation. Patient will continue with Lasix 40 mg daily and aspirin 81 mg daily. Further adjustment in medication can be done by her PCP or cardiology. Case discussed in detail with cardiology. Patient will need repeat echocardiogram in the next 2-4 weeks with Cardiology to monitor resolution. Patient with hypertension. Blood pressure stable. At discharge she will continue with her current medications-lisinopril 5 mg 1 pill daily and lisinopril hydrochlorothiazide 20/25 mg 1 pill daily. Recommend to maintain blood pressure less than 130/80. Further adjustment can be done by her PCP. Patient with anemia chronic disease. This has remained stable. This can be further monitored by her PCP. Recommend to continue multi vitamin daily peer Patient with breast cancer with recent chemotherapy. This has been discontinued due to cardiac toxicity. Recommend follow up with Oncology to further monitor and address. Continue with above recommendations. Patient with diabetes mellitus type 2 [id number]. Blood sugar stable. At discharge she will continue with her current medications-glipizide 5 mg 1 pill daily and metformin 1000 mg 1 pill twice daily. Recommend to maintain blood sugar less than 140 fasting and less than 200 after meals. Patient will be on prednisone which may cause hyperglycemia. If blood sugar increases may need to adjust glipizide to twice daily for better control. This should be done with the help of her PCP. Vital Signs/Physical Exam: Temp Pulse Resp BP Pulse Ox 97.6 F 92 H 18 163/77 H 96 08/14/20 04:00 08/14/20 08:18 08/14/20 04:00 08/14/20 08:18 08/14/20 04:00 General: Alert, In no apparent distress, Oriented x3, Cooperative HEENT: Atraumatic Neck: Supple Respiratory: Other (Patient without respiratory distress. Currently on 2 L per nasal cannula) Cardiovascular: Normal pulses, Regular rate/rhythm Gastrointestinal: Normal bowel sounds, Soft and benign, Non-distended, No masses, No rebound, No guarding Integumentary: No erythema, No warmth, No cyanosis Neurological: Normal speech, Normal strength at 5/5 x4 extr, Normal tone, Normal affect Laboratory Data at Discharge: WBC 12.2 K/uL (4.3-10.9) H D 08/14/20 04:08 Hgb 9.4 g/dL (12.0-15.0) L 08/14/20 04:08 Hct 29.4 % (36.0-45.0) L 08/14/20 04:08 Plt Count 416 K/uL (152-406) H 08/14/20 04:08 PT 11.9 SECONDS (9.5-12.5) 08/13/20 03:46 INR 1.01 08/13/20 03:46 APTT 24.6 SECONDS (24.3-36.9) 08/13/20 03:46 Sodium 136 mmol/L (136-145) 08/14/20 04:08 Potassium 4.4 mmol/L (3.5-5.1) 08/14/20 04:08 BUN 20 mg/dL (7-18) H 08/14/20 04:08 Creatinine 0.74 mg/dL (0.55-1.3) 08/14/20 04:08 Glucose 222 mg/dL (74-106) H 08/14/20 04:08 Magnesium 2.5 mg/dL (1.8-2.4) H 08/14/20 04:08 Total Bilirubin 0.2 mg/dL (0.2-1.0) 08/14/20 04:08 AST 29 U/L (15-37) 08/14/20 04:08 ALT 48 U/L (12-78) 08/14/20 04:08 Alkaline Phosphatase 147 U/L (45-117) H 08/14/20 04:08 Troponin I 0.14 ng/mL (0.0-0.045) H 08/13/20 21:09 Triglycerides 140 mg/dL (<150) 08/14/20 04:08 Cholesterol 226 mg/dL (<200) H 08/14/20 04:08 HDL Cholesterol 57 mg/dL (40-60) 08/14/20 04:08 Cholesterol/HDL Ratio 3.96 08/14/20 04:08 Amylase 30 U/L (25-115) 08/13/20 03:46 Lipase 82 U/L (73-393) 08/13/20 03:46 Home Medications: Furosemide [Lasix] 40 mg PO BID 08/13/20 Lisinopril/Hydrochlorothiazide [Lisinopril-Hctz 20-25 mg Tab] 20 mg PO DAILY 08/13/20 Metformin ER [Glucophage ER*] 1,000 mg PO BID* 08/13/20 glipiZIDE [Glipizide] 5 mg PO DAILY 08/13/20 lisinopriL [Lisinopril] 5 mg PO DAILY 08/13/20 Albuterol Sulfate [Ventolin Hfa] 2 puff IH TID PRN #1 hfa.aer.ad 08/14/20 Ascorbic Acid [Vitamin C*] 500 mg PO TID #90 tablet 08/14/20 Aspirin [Aspirin EC 81 MG] 81 mg PO DAILY #30 tablet. 08/14/20 Atorvastatin Calcium [Lipitor*] 10 mg PO BEDTIME #30 tab 08/14/20 Benzonatate [Tessalon Perle*] 100 mg PO TID PRN #15 cap 08/14/20 Cholecalciferol (Vitamin D3) [Vitamin D 1000 Iu Tab*] 2,000 unit PO DAILY #60 tab 08/14/20 Melatonin 5 mg PO BEDTIME #30 tablet 08/14/20 Thiamine HCl [Vitamin B-1*] 100 mg PO DAILY #30 tablet 08/14/20 Zinc Sulfate [Zinc Sulfate*] 220 mg PO DAILY #30 cap 08/14/20 predniSONE [Prednisone*] 20 mg PO SEECOM #21 tab 08/14/20 New Medications: Aspirin [Aspirin EC 81 MG] 81 mg PO DAILY #30 tablet. Atorvastatin Calcium [Lipitor*] 10 mg PO BEDTIME #30 tab Melatonin 5 mg PO BEDTIME #30 tablet predniSONE [Prednisone*] 20 mg PO SEECOM #21 tab Benzonatate [Tessalon Perle*] 100 mg PO TID PRN #15 cap PRN Reason: Cough Albuterol Sulfate [Ventolin Hfa] 2 puff IH TID PRN #1 hfa.aer.ad PRN Reason: Shortness Of Breath Thiamine HCl [Vitamin B-1*] 100 mg PO DAILY #30 tablet Ascorbic Acid [Vitamin C*] 500 mg PO TID #90 tablet Cholecalciferol (Vitamin D3) [Vitamin D 1000 Iu Tab*] 2,000 unit PO DAILY #60 tab Zinc Sulfate [Zinc Sulfate*] 220 mg PO DAILY #30 cap Patient Discharge Instructions: Recommend follow up with PCP in 1 week to follow up this hospitalization. Patient presented with dyspnea secondary to acute respiratory failure related to bilateral COVID pneumonia. Patient was admitted for further evaluation and treatment. Patient was seen by pulmonology. Patient received IV steroids, Remdesivir, and supplementation with improvement. Patient did well Overnite. Patient without significant shortness of breath. Patient currently on 2 L per nasal cannula. CT scan did not show any evidence of pulmonary embolism. Troponin was slightly elevated likely from ischemic demand. This was further complicated with history of cardiac [place] related to chemotherapy for breast cancer. Echocardiogram performed showed small pericardial effusion with ejection fraction around 30-35% with moderate global hypokinesis and mild to moderate mitral regurgitation. Patient without significant chest pain or shortness of breath at discharge. At discharge patient will continue with oxygen at 2 L per nasal cannula. Home oxygen will be arranged to maintain sats above 93%. At discharge patient will continue with prednisone 20 mg 1 pill twice daily for 7 days then 1 pill once daily for 7 days. Patient will also be given Tessalon Perles 100 mg 3 times a day as needed for cough and Ventolin 2 puffs 3 times a day as needed for shortness of breath. The patient will continue with vitamin C 500 mg one pill 3 times a day, vitamin- D 2000 units one pill daily, zinc 220 mg one pill daily, thiamine 100 mg one pill daily, and melatonin 5 mg one pill every bedtime. The patient should continue with aspirin 81 mg daily. Patient will need to limit her activities at home especially with increased shortness of breath. Patient provided education on COVID isolation guidelines. Patient will need a follow up with pulmonology within 1 week to follow up this hospitalization and further address her care. Oxygen will be weaned off with the help of pulmonology. Further changes in medication will be provided by pulmonology as well. As mentioned above patient had elevated troponin likely ischemic demand. This is further complicated with her history of cardiac toxicity related to chemotherapy for her breast cancer. Echocardiogram shows small pericardial fusion, EF shows 30-35% with moderate global hypokinesis, mild and moderate mitral regurgitation. Patient with underlying chronic systolic heart failure. Recommend to continue 1500 cc per day fluid restriction. Recommend to monitor her weight daily. If her weight increases by more than 5 lb she is to contact her PCP or cardiology for further recommendation. Patient will continue with Lasix 40 mg daily and aspirin 81 mg daily. Further adjustment in medication can be done by her PCP or cardiology. Case discussed in detail with cardiology. Patient will need repeat echocardiogram in the next 2-4 weeks with Cardiology to monitor resolution. Patient with hypertension. Blood pressure stable. At discharge she will continue with her current medications-lisinopril 5 mg 1 pill daily and li sinopril hydrochlorothiazide 20/25 mg 1 pill daily. Recommend to maintain blood pressure less than 130/80. Further adjustment can be done by her PCP. Patient with anemia chronic disease. This has remained stable. This can be further monitored by her PCP. Recommend to continue multi vitamin daily peer. Patient with breast cancer with recent chemotherapy. This has been discontinued due to cardiac toxicity. Recommend follow up with Oncology to further monitor and address. Continue with above recommendations. Patient with diabetes mellitus type 2 [id number]. Blood sugar stable. At discharge she will continue with her current medications-glipizide 5 mg 1 pill daily and metformin 1000 mg 1 pill twice daily. Recommend to maintain blood sugar less than 140 fasting and less than 200 after meals. Patient will be on prednisone which may cause hyperglycemia. If blood sugar increases may need to adjust glipizide to twice daily for better control. This should be done with the help of her PCP. Diet: ADA Activity: Fall precautions Followup: Unknown,U [Primary Care Provider] - Time spent managing pt's care (in minutes): 55
--- NOTE | 2020-08-14 09:02 | RAD REPORT ---
EXAM DESCRIPTION: RAD - Chest Single View - 08/14/2020 5:02 am CLINICAL HISTORY: follow up COVID Chest pain. COMPARISON: Chest Single View dated 08/13/2020 FINDINGS: Portable technique limits examination quality. Moderate improvement is seen in bilateral pulmonary opacities since comparative study. The heart is n ormal in size. Right port catheter is unchanged in position. . IMPRESSION: Moderate lung aeration improvement since prior study.
[2020-08-14 10:45] VITALS: BMI 30.1
[2020-08-14 11:08] VITALS: O2SAT 98
[2020-08-14 12:34] VITALS: BP 161/77; TEMP 97.5
--- NOTE | 2020-08-14 12:46 | RAD REPORT ---
EXAM DESCRIPTION: CT - Chest For Pe Angio - 08/13/2020 7:10 am CLINICAL HISTORY: Chest pain;Dyspnea TECHNIQUE: Axial computed tomographic angiography images of the chest with intravenous contrast. S agittal and coronal reformatted images were created and reviewed. This CT exam was performed using one or more of the following dose reduction techniques: automated exposure control, adjustment of t he mA and/or kV according to patient size, and/or use of iterative reconstruction technique. MIP re constructed images were created and reviewed. COMPARISON: No relevant prior studies available. FINDINGS: Pulmonary arteries: No abnormality noted. No pulmonary embolism. Aorta: No acute change noted. No thoracic aortic aneurysm. Lungs: Multifocal groundglass and superimposed consolidative peribronchial infiltrates present i n all lobes of both lungs with diffuse underlying septal thickening. Pleural space: Small layering bilateral pleural effusions present. No pneumothorax. Heart: Small pericardial effusion noted. Cardiomegaly. No evidence of RV dysfunction. Bones/joints: No acute fracture. No dislocation. Soft tissues: No abnormality noted. Lymph nodes: No abnormality noted. No enlarged lymph nodes. Tubes, lines and devices: Central venous port terminates in the distal SVC. IMPRESSION: 1. Bilateral interstitial and airspace consolidation and septal thickening could refle ct CHF and/or pneumonia including viral etiology. 2. No pulmonary embolus noted. Electronically signed by: La Davis MD 08/13/2020 5:32 AM MANAGER KNOWLEDGE Due to temporary technical issues with the PACS/Fluency reporting system, reports are being signed by the in house radiologist without review as a courtesy to ensure prompt reporting. The interpreting r adiologist is fully responsible for the content of the report.
== END 2020-08-14 14:45 | disposition home or self-care (01) | DRG 177 ==
LOC: ER 03:13 → ERHOLD 06:58 → 4TH 15:59
PROVIDERS: ADMIT Family Medicine; ATTEND Family Medicine
PROC: 5A09357 Assistance with Respiratory Ventilation, Less than 24 Consecutive Hours, Continuous Positive Airway Pressure (ICD-10-PCS; principal; 2020-08-13)
DX: U07.1 COVID-19 (principal); J12.82 Pneumonia due to coronavirus disease 2019; J96.00 Acute respiratory failure, unspecified whether with hypoxia or hypercapnia; I24.8 Other forms of acute ischemic heart disease; I50.22 Chronic systolic (congestive) heart failure; I11.0 Hypertensive heart disease with heart failure; E78.5 Hyperlipidemia, unspecified; E11.65 Type 2 diabetes mellitus with hyperglycemia; I34.0 Nonrheumatic mitral (valve) insufficiency; D63.8 Anemia in other chronic diseases classified elsewhere; C50.919 Malignant neoplasm of unspecified site of unspecified female breast; R77.8 Other specified abnormalities of plasma proteins; Z79.84 Long term (current) use of oral hypoglycemic drugs; Z79.899 Other long term (current) drug therapy; Z87.891 Personal history of nicotine dependence; Z23 Encounter for immunization
CPT/HCPCS: 36415; 71045; 71275; 80048; 80053; 80061; 80076; 81003; 81015; 82150; 82550; 82553; 82728; 82947; 83036; 83605; 83690; 83735; 83880; 84132; 84145; 84439; 84443; 84484; 85025; 85610; 85730; 86140; 87040; 87086; 87088; 90471; 93005; 93306; 94660; 96372; 96374; 96375; 99285; J0456; J0696; J1650; J1815; J2930; J3475; J7030; J7040; J7050; Q2035; Q9967; U0003